=== PATIENT | female | born 1990 | race Caucasian/White ===

== ENCOUNTER 2017-03-10 09:06 | Emergency (ER) | payer MEDICARE, MEDICAID ==
[~2017-03-10 09:06] MED LIST: ABILIFY10 M1 PO; ABILIFY10 MG; ABILIFY10 MG PO; ABILIFY15 MG PO; ACID CONTROL150 MG PO; AMOXIL500 MG PO; ANTIVERT25 MG PO; BENTYL10 MG PO; BUSPAR15 MG PO; CELEXA40 M1 PO; CETIRIZINE HCL PO; DOXEPIN HCL100 MG PO; FLEXERIL10 MG PO; H PO; HYDROCODON-ACE1 EAC7 PO; HYOMAX-DT0.375 MG PO; HYOSCYAMIN0.125 MG/M; IBUPROFEN600 MG PO; KLONOPIN0.5 MG PO; KLONOPIN1 MG; KLONOPIN1 MG PO; LATUDA40 M1 PO; NAPROXEN500 M1 PO; NICOTINE PATCH; PATADAY2.5 ML OP; PERCOCET 5-3251 EACH PO; PRENATAL 19 TA1 EACH PO; PROVIGIL200 MG; REGULOID POWDE PO; SONATA10 MG; SUDAFED60 MG/TAB PO; ULTRAM50 MG PO; VISTARIL25 M1 PO; ZANTAC15; ZOFRAN ODT4 MG/UDTAB PO
[2017-03-10] MEDS ORDERED: NORCO 5-325 TA1 EACH PO (09:41)
[2017-03-10] MEDS ORDERED: AMOXICILLIN500 M2 PO (09:41)
[2017-06-08] MEDS ORDERED: ABILIFY10 M1 PO (17:11)
[2017-06-08] MEDS ORDERED: POTASSIUM CHLO20 ME3 PO (20:16)
[2017-06-08] MEDS ORDERED: NORCO 5-325 TA1 EACH PO (20:16)
[2017-06-08] MEDS ORDERED: ZOFRAN ODT4 MG PO (20:16)
== END 2017-03-10 09:46 ==
LOC: EDMED 09:06
DX: K08.89 Other specified disorders of teeth and supporting structures (principal); Z90.89 Acquired absence of other organs; Z98.890 Other specified postprocedural states; F17.200 Nicotine dependence, unspecified, uncomplicated